=== PATIENT | male | born 1985 | race Caucasian/White ===

== ENCOUNTER 2023-03-12 11:13 | Emergency (ER) | payer OTHER ==
[~2023-03-12] VITALS: Ht 177.8 cm; Wt 102.3 kg
[2023-03-12] MEDS ORDERED: IBUP1TAB7 PO (12:06)
[2023-03-12 12:38] VITALS: BP 151/93; TEMP 98.1; O2SAT 98
== END 2023-03-12 12:41 | disposition home or self-care (01) ==
LOC: M ED 11:13
DX: S93.402A Sprain of unspecified ligament of left ankle, initial encounter (principal); Y93.83 Activity, rough housing and horseplay; Y92.009 Unspecified place in unspecified non-institutional (private) residence as the place of occurrence of the external cause; Y99.9 Unspecified external cause status; X58.XXXA Exposure to other specified factors, initial encounter

== ENCOUNTER 2023-11-16 06:15 | Day surgery (SDC) | payer OTHER ==
[~2023-11-16] VITALS: Ht 177.8 cm; Wt 96.3 kg
[~2023-11-16 06:15] MED LIST: DIVA250T67 PO; IBUP1TAB7 PO; METH-1164 PO; PROP10TA56 PO; ROSU20TA61 PO; SERT-141 PO; SERT25TA85 PO
[2023-11-16] MEDS ORDERED: LR 1,000 ML IV SCH ×2 (06:55→10:30)
[2023-11-16] MEDS ORDERED: propofoL 200 MG/20 ML VIAL As Ordered ONE (07:06)
[2023-11-16] MEDS ORDERED: ROCURONIUM BROMIDE 50MG/5ML VIAL As Ordered ONE (07:06)
[2023-11-16] MEDS ORDERED: LIDOCAINE 2% 100MG/5ML SDV (FOR ANES.) As Ordered ONE (07:06)
[2023-11-16] MEDS: dexAMETHasone 10MG/1ML VIAL PRES.FREE PN ONE (07:10)
[2023-11-16] MEDS: ROPIvacaine 0.5% 30ML VIAL PN ONE (07:10)
[2023-11-16] MEDS: LIDOCAINE 1% SDV 5ML VIAL PN ONE (07:10)
[2023-11-16] MEDS ORDERED: ONDANSETRON 4MG 2ML VIAL As Ordered ONE (07:11)
[2023-11-16] MEDS: fentaNYL 100 MCG/2 ML INJECTION IV PRN (07:41)
[2023-11-16] MEDS: MIDAZOLAM INJ 2MG/2ML VIAL IV PRN (07:41)
[2023-11-16] MEDS ORDERED: fentaNYL 100 MCG/2 ML INJECTION As Ordered ONE (07:55)
[2023-11-16] MEDS: EPINEPHrine 1MG/ML INJ 30ML MD-VIAL As Ordered ONE (08:00)
[2023-11-16] MEDS: ceFAZolin SOD 2 GM in IV 1 EA IV ONE (08:00)
[2023-11-16] MEDS: TRANEXAMIC ACID 100 MG/ML 10ML VIAL As Ordered ONE (08:00)
[2023-11-16] MEDS: ceFAZolin 2 GM/D5W 50 ML IV BAG As Ordered ONE (08:15)
[2023-11-16] MEDS ORDERED: GLYCOPYRROLATE INJ 0.2 MG/ML 2 ML VIAL As Ordered ONE (08:23)
[2023-11-16] MEDS ORDERED: SUGAMMADEX SODIUM 500 MG/5 ML VIAL (BRIDION) As Ordered ONE (08:43)
[2023-11-16] MEDS ORDERED: ACETAMINOPHEN 1000MG 100ML IV BAG As Ordered ONE (09:16)
[2023-11-16] MEDS ORDERED: dexmedeTOMIDine (4MCG/ML)200MCG/50ML BTL (PRECEDEX) As Ordered ONE (09:37)
[2023-11-16] MEDS: LIDOCAINE W/EPINEPHRINE 1% 20ML VIAL As Ordered ONE (09:45)
[2023-11-16] MEDS: LIDOCAINE 1% MDV 20ML VIAL As Ordered ONE (09:59)
[2023-11-16] MEDS: VANCOMYCIN 1000MG/20ML VIAL As Ordered ONE (10:01)
[2023-11-16] MEDS ORDERED: fentaNYL 100 MCG/2 ML INJECTION IV PRN (10:30)
[2023-11-16] MEDS ORDERED: HYDROMORPHONE HCL 0.5 MG/ 0.5 ML SYRINGE IV PRN (10:30)
[2023-11-16] MEDS ORDERED: ONDANSETRON 4MG 2ML VIAL IV PRN (10:30)
[2023-11-16] MEDS ORDERED: oxyCODONE 5MG TAB PO PRN (10:30)
[2023-11-16 12:26] VITALS: BP 121/63; TEMP 97.2; O2SAT 99
== END 2023-11-16 12:45 | disposition home or self-care (01) ==
LOC: M SDC 06:15
PROVIDERS: ATTEND Orthopaedic Surgery
DX: M75.41 Impingement syndrome of right shoulder (principal); M75.51 Bursitis of right shoulder; M19.011 Primary osteoarthritis, right shoulder; M77.8 Other enthesopathies, not elsewhere classified; E78.00 Pure hypercholesterolemia, unspecified; G43.909 Migraine, unspecified, not intractable, without status migrainosus; G47.33 Obstructive sleep apnea (adult) (pediatric); K21.9 Gastro-esophageal reflux disease without esophagitis; Z79.899 Other long term (current) drug therapy; F43.10 Post-traumatic stress disorder, unspecified; Z87.891 Personal history of nicotine dependence
CPT/HCPCS: 23120; 29822; J0131; J0171; J0690; J1100; J1596; J2250; J2405; J3010; J3370

== ENCOUNTER 2024-04-22 08:17 | Emergency (ER) | payer OTHER ==
[~2024-04-22] VITALS: Ht 177.8 cm; Wt 102.0 kg
[~2024-04-22 08:17] MED LIST changes: -ROSU20TA61 PO; +ROSU20TA86 PO
[2024-04-22] MEDS ORDERED: SERT50TA29 (09:54)
[2024-04-22] MEDS ORDERED: ROSU10TA61 (09:54)
[2024-04-22] MEDS ORDERED: JARD1TAB (09:54)
[2024-04-22] MEDS ORDERED: TIZA10TA (09:54)
[2024-04-22] MEDS ORDERED: EZET10TA21 (09:54)
[2024-04-22] MEDS ORDERED: ENTR1TAB (09:54)
[2024-04-22] MEDS: IPRATROPIUM 0.5MG/ALBUTEROL 2.5MG INH SOL UD 3ML (DUONEB) NEB ONE (11:56)
[2024-04-22 12:42] VITALS: BP 132/70; TEMP 97.3; O2SAT 98
== END 2024-04-22 12:44 | disposition home or self-care (01) ==
LOC: M ED 08:17
DX: U07.1 COVID-19 (principal); I10 Essential (primary) hypertension; Z79.1 Long term (current) use of non-steroidal anti-inflammatories (NSAID); Z79.899 Other long term (current) drug therapy; Z79.4 Long term (current) use of insulin